=== PATIENT | female | born 2000 | race Caucasian/White ===

== ENCOUNTER → 2023-05-17 11:07 | Outpatient (CLI) | payer BC, SELFPAY ==
--- NOTE | ~2023-05-17 | XR_ITS ---
XR abdomen/kub 1V 05/17/2023 11:20 INDICATION: Abdomen pain TECHNIQUE: KUB COMPARISON: None FINDINGS: Bowel gas pattern is normal. There is no evidence of free air, mass, organomegaly, ascites or obstruction. No abnormal calculi are seen. The bones appear intact. IMPRESSION: 1: No acute abdominal abnormality identified. Reviewed, dictated and finalized at location B. [employer]
== END ==
PROVIDERS: PCP Nurse Practitioner; Visit Provider Nurse Practitioner
DX: R10.9 Unspecified abdominal pain (principal); R11.0 Nausea
CPT/HCPCS: 74018

== ENCOUNTER 2023-10-31 09:51 | Outpatient (CLI) | payer BC, SELFPAY ==
[2023-10-31 13:07] LABS: Hematocrit 43.9 % (37.0-47.0); Hemoglobin 13.8 g/dL (12.0-15.0); Mean Corpuscular HGB Conc 31.4 g/dl (32-36); Mean Corpuscular Hemoglobin 28.8 pg (26-34); Mean Corpuscular Volume 91.5 fl (80-100); Mean Platelet Volume 12.6 fl (7.4-10.4); Platelet Count Result 217 k/mm3 (150-375); Red Cell Distribution Width 12.4 % (11.5-14.5); White Blood Count 5.8 K/mm3 (4.5-10.0)
[2023-10-31 13:21] LABS: Alanine Aminotransferase 19 U/L (6-35); Albumin Level 4.7 g/dL (3.5-5.1); Alkaline Phosphatase 82 U/L (38-126); Amylase 56 U/L (30-110); Anion Gap 6 mmol/L (4-12); Aspartate Amino Transferase 33 U/L (14-36); Bilirubin,Total 0.6 mg/dL (0.2-1.3); Blood Urea Nitrogen 5 mg/dL (7-17); Calcium 9.1 mg/dL (8.4-10.2); Carbon Dioxide 28 mmol/L (22-30); Chloride 106 mmol/L (98-107); Cholesterol 188 mg/dL (0-200); Estimated Glomerular Filt Rate > 60; Glucose 101 mg/dL (65-110); HDL Direct 26 mg/dL; Lipase 36 U/L (23-300); Sodium 140 mmol/L (137-145); Triglycerides 164 mg/dL (<150)
[2023-10-31 13:32] LABS: LDL Cholesterol Direct 134 mg/dL
== END 2023-10-31 09:52 | disposition home or self-care (01) ==
LOC: ANHGOSHLAB 09:52
PROVIDERS: PCP Family Medicine; Visit Provider Family Medicine
DX: Z00.00 Encounter for general adult medical examination without abnormal findings (principal); E66.3 Overweight; R10.9 Unspecified abdominal pain
CPT/HCPCS: 36415; 80053; 80061; 82150; 83690; 84443; 85027